=== PATIENT | female | born 1960 | race Caucasian/White ===

== ENCOUNTER 2018-11-06 06:34 | Day surgery (SDC) | payer BC ==
[2018-11-06] MEDS ORDERED: Propofol 200 MG/20 ML SDV IV ONE (06:35)
[2018-11-06] MEDS ORDERED: Lidocaine 1% PF 2 ML SDV INJECT ONE (06:35)
[2018-11-06] MEDS ORDERED: Lactated Ringers 1,000 ML IV SCH (06:45)
[2018-11-06] MEDS ORDERED: Sodium Chloride 0.9% 10 ML Syringe FLUSH PRN (06:45)
--- NOTE | 2018-11-06 08:06 | PCM.OPNOTE ---
- General Post-Op/Procedure Note Date of Surgery/Procedure: 11/06/18 Operative Procedure(s): c scope Findings: sigmoid diveriticulosis Pre Op Diagnosis: screening 1st degree relative with hx of colon cancer Post-Op Diagnosis: sigmoid diveriticulosis Anesthesia Technique: MARIA R Primary Surgeon: Reji Sun Anesthesia Provider: James Anderson ([facility]) Complications: None Condition: Good Free Text/Narrative:: see dictation
--- NOTE | 2018-11-06 12:29 | OR ---
DATE OF OPERATION: 11/06/2018 SURGEON: Reji Sun MD PROCEDURE PERFORMED: Colonoscopy. PREOPERATIVE DIAGNOSES: Need for screening C scope, family history of colon cancer. POSTOPERATIVE DIAGNOSIS: Sigmoid diverticulosis. INDICATIONS FOR PROCEDURE: This is a 58-year-old white female, who presents for a followup colonoscopy. She has a first-degree relative with a history of colon cancer. She was offered and accepted same. DESCRIPTION OF OPERATION: After an excellent IV sedation was administered, digital rectal exam was performed. No marked abnormality was noted. The flexible colonoscope was inserted and advanced to the cecum without difficulty. The prep was excellent. The following findings were noted. Ascending colon was unremarkable. The transverse colon was unremarkable. The descending colon was unremarkable. Sigmoid, mild diverticulosis. Rectum and anus, unremarkable. Colon was deflated as the scope was removed. The patient tolerated the procedure well. /[id number] /MODL
== END 2018-11-06 09:09 | disposition home or self-care (01) ==
LOC: FB.SDS 06:34
PROVIDERS: ATTEND Surgery
DX: Z12.11 Encounter for screening for malignant neoplasm of colon (principal); K57.30 Diverticulosis of large intestine without perforation or abscess without bleeding; Z80.0 Family history of malignant neoplasm of digestive organs; K21.9 Gastro-esophageal reflux disease without esophagitis; I10 Essential (primary) hypertension; E78.00 Pure hypercholesterolemia, unspecified; F32.9 Major depressive disorder, single episode, unspecified; F41.0 Panic disorder [episodic paroxysmal anxiety]; Z87.891 Personal history of nicotine dependence; Z87.442 Personal history of urinary calculi; Z79.82 Long term (current) use of aspirin; Z79.899 Other long term (current) drug therapy; Z91.040 Latex allergy status
CPT/HCPCS: 45378; J2001; J2704; J7120

== ENCOUNTER 2025-04-03 07:38 | Day surgery (SDC) | payer BC, OTHER ==
[2025-04-03] MEDS ORDERED: Propofol 200 MG/20 ML SDV IV ONE (07:39)
[2025-04-03] MEDS ORDERED: Sodium Chloride 0.9% 10 ML Syringe FLUSH PRN (07:45)
[2025-04-03] MEDS: Lactated Ringers 1,000 ML IV SCH (08:28)
[2025-04-04 22:53] LABS: ADENOVIRUS 40/41 PCR Not Detected; ASTROVIRUS PCR Not Detected; CRYPTOSPORIDIUM PCR Not Detected; CYCLOSPORA CAYETANENSIS PCR Not Detected; ENTAMOEBA HISTOLYTICA PCR Not Detected; ENTEROAGGREGATIVE E. COLI PCR Not Detected; ENTEROPATHOGENIC E. COLI PCR Not Detected; ENTEROTOXIGENIC E. COLI PCR Not Detected; GIARDIA LAMBLIA PCR Not Detected; NOROVIRUS GI/GII PCR Not Detected; PLESIOMONAS SHIGELLOIDES PCR Not Detected; ROTAVIRUS A PCR Not Detected; SALMONELLA PCR Not Detected; SAPOVIRUS PCR Not Detected; SHIG/ENTEROINVASIVE E COLI PCR Not Detected; SHIGA TOXIN-PRODUC E. COLI PCR Not Detected; VIBRIO CHOLERAE PCR Not Detected; VIBRIO PCR Not Detected; YERSINIA ENTEROCOLITICA PCR Not Detected
[2025-04-05 01:19] LABS: LACTOFERRIN,FECAL BY ELISA Negative (Negative)
== END 2025-04-03 10:08 | disposition home or self-care (01) ==
LOC: FB.SDS 07:38
PROVIDERS: ATTEND Surgery
DX: K57.30 Diverticulosis of large intestine without perforation or abscess without bleeding (principal); I10 Essential (primary) hypertension; E78.5 Hyperlipidemia, unspecified; F32.A Depression, unspecified; F41.9 Anxiety disorder, unspecified; Z80.0 Family history of malignant neoplasm of digestive organs; Z87.891 Personal history of nicotine dependence; Z79.899 Other long term (current) drug therapy
CPT/HCPCS: 45378; 83630; 87507; A9270; J2003; J2704; J7120; 00811